=== PATIENT | female | born 1955 | race Caucasian/White ===

== ENCOUNTER 2020-11-06 16:44 | Observation (INO) | payer MEDICARE, OTHER ==
[~2020-11-06] VITALS: Ht 160 cm; Wt 70.3 kg
[~2020-11-06 16:44] MED LIST: ASPIRIN EC81 MG PO; ATORVASTATIN CA20 MG PO; CLOPIDOGREL75 MG PO; HYDROCHLOROTHIA25 MG PO; LISINOPRIL40 MG PO; LORTAB 5-325 M1 EACH PO; SENNA-TIME S T1 EACH PO
[2020-11-06 17:50] LABS: HEMOGLOBIN 15.3 gm/dl (12.3-15.3); RED BLOOD COUNT 5.15 M/UL (4.00-5.10); WHITE BLOOD COUNT 6.7 K/UL (4.5-11.0)
[2020-11-06 18:10] LABS: BUN/CREATININE RATIO 28 (0-10)
[2020-11-08 03:30] LABS: WHITE BLOOD COUNT 5.4 K/UL (4.5-11.0)
[2020-11-08 03:34] LABS: HEMOGLOBIN 12.3 gm/dl (12.3-15.3); RED BLOOD COUNT 4.29 M/UL (4.00-5.10)
[2020-11-08 03:37] LABS: BUN/CREATININE RATIO 28 (0-10)
[2020-11-08] MEDS ORDERED: ATORVASTATIN CA20 MG PO (12:47)
[2020-11-08] MEDS ORDERED: KEPPRA 500 MG500 MG PO (12:47)
[2020-11-08] MEDS ORDERED: ASPIRIN EC81 MG PO (12:47)
[2020-11-08] MEDS ORDERED: LISINOPRIL10 MG PO (12:47)
[2020-11-08] MEDS ORDERED: OMNICEF 300 MG300 MG PO (12:48)
== END 2020-11-08 22:40 | disposition other institution (70) ==
LOC: ER1 16:44 → CDU 22:07 → M/S 22:07
PROVIDERS: Family Medicine; Student in an Organized Health Care Education/Training Program; ADMIT Internal Medicine
DX: I69.392 Facial weakness following cerebral infarction (principal); I69.354 Hemiplegia and hemiparesis following cerebral infarction affecting left non-dominant side; I25.10 Atherosclerotic heart disease of native coronary artery without angina pectoris; J44.9 Chronic obstructive pulmonary disease, unspecified; E87.6 Hypokalemia; I10 Essential (primary) hypertension; N39.0 Urinary tract infection, site not specified; F17.210 Nicotine dependence, cigarettes, uncomplicated; Z91.14 Patient's other noncompliance with medication regimen; Z95.5 Presence of coronary angioplasty implant and graft; Z20.822 Contact with and (suspected) exposure to COVID-19; Z79.82 Long term (current) use of aspirin; Z79.02 Long term (current) use of antithrombotics/antiplatelets; Z79.899 Other long term (current) drug therapy
CPT/HCPCS: 0240U; 36415; 70450; 70551; 71045; 73030; 80048; 80053; 81001; 82550; 82553; 82803; 83874; 84132; 84484; 85025; 85379; 85610; 85730; 90471; 93005; 96365; 96366; 96372; 96375; 99285; G0378; J0696; J1650; J3475; J7040; J7070; Q9967